=== PATIENT | female | born 1990 | race Caucasian/White ===

== ENCOUNTER 2017-10-28 13:13 | Emergency (ER) | payer MEDICAID, OTHER ==
[2017-10-28] MEDS: IBUPROFEN 600 MG TAB PO (15:17)
== END 2017-10-28 16:21 | disposition home or self-care (01) ==
LOC: FTE 13:13
DX: S50.811A Abrasion of right forearm, initial encounter (principal); S29.9XXA Unspecified injury of thorax, initial encounter; R07.89 Other chest pain; V33.5XXA Driver of three-wheeled motor vehicle injured in collision with car, pick-up truck or van in traffic accident, initial encounter
CPT/HCPCS: 71045; 73090-RT; 93005; 99284-25

== ENCOUNTER 2018-09-20 17:35 | Emergency (ER) | payer MEDICAID | END 2018-09-20 21:47 | disposition home or self-care (01) | LOC: FTE 17:35 | DX: O99.511 Diseases of the respiratory system complicating pregnancy, first trimester (principal); J10.1 Influenza due to other identified influenza virus with other respiratory manifestations; Z3A.08 8 weeks gestation of pregnancy | CPT/HCPCS: 87400; 87880; 99283 ==

== ENCOUNTER 2019-01-02 19:19 | Emergency (ER) | payer MEDICAID ==
[2019-01-02] MEDS: CARBAMIDE PEROXIDE 6.5% 15ML OTIC BOTH EARS (23:23)
== END 2019-01-03 01:07 | disposition home or self-care (01) ==
LOC: FTE 01-03 01:07
DX: O99.89 Other specified diseases and conditions complicating pregnancy, childbirth and the puerperium (principal); H61.23 Impacted cerumen, bilateral; Z3A.22 22 weeks gestation of pregnancy
CPT/HCPCS: 69209; 99283-25

== ENCOUNTER 2019-02-23 17:24 | Outpatient (CLI) | payer MEDICAID | END 2019-02-23 18:15 | disposition home or self-care (01) | LOC: OBT 17:24 → L-D 17:26 → OBT 18:15 | DX: O26.893 Other specified pregnancy related conditions, third trimester (principal); R21 Rash and other nonspecific skin eruption; Z3A.29 29 weeks gestation of pregnancy | CPT/HCPCS: Z7500 ==

== ENCOUNTER → 2019-02-23 | Emergency (ER) | payer MEDICAID ==
[2019-02-23] MEDS: predniSONE 20 MG TAB PO (19:34)
== END | disposition home or self-care (01) ==
LOC: FTE 18:31
DX: O99.713 Diseases of the skin and subcutaneous tissue complicating pregnancy, third trimester (principal); L98.9 Disorder of the skin and subcutaneous tissue, unspecified; Z3A.29 29 weeks gestation of pregnancy
CPT/HCPCS: 99283; J7512